=== PATIENT | female | born 1980 | race Native Hawaiian/Other Pacific Islander ===

== ENCOUNTER 2018-06-10 11:25 | Emergency (ER) | payer OTHER ==
[2018-06-10] MEDS: KETOROLAC 60 MG/2 ML VIAL (J1885) IM (12:15)
== END 2018-06-10 12:52 | disposition home or self-care (01) ==
LOC: M ED 11:25
DX: N94.6 Dysmenorrhea, unspecified (principal)
CPT/HCPCS: J1885